=== PATIENT | female | born 1970 | race Caucasian/White ===

== ENCOUNTER 2022-05-11 12:46 | Inpatient (IN) | payer BC ==
[~2022-05-11] VITALS: Ht 167.6 cm; Wt 139.7 kg
[2022-05-11 14:26] LABS: HEMOGLOBIN 13.3 gm/dl (12.3-15.3); RED BLOOD COUNT 4.25 M/UL (4.00-5.10); WHITE BLOOD COUNT 15.9 K/UL (4.5-11.0)
[2022-05-11 14:46] LABS: BUN/CREATININE RATIO 21 (0-10)
[2022-05-12 04:17] LABS: WHITE BLOOD COUNT 12.5 K/UL (4.5-11.0)
[2022-05-12 04:21] LABS: HEMOGLOBIN 11.3 gm/dl (12.3-15.3); RED BLOOD COUNT 3.61 M/UL (4.00-5.10)
[2022-05-12 04:57] LABS: BUN/CREATININE RATIO 18 (0-10)
[2022-05-12] MEDS ORDERED: TRESIBA FL100 UNIT/1 SQ (11:15)
[2022-05-12] MEDS ORDERED: ELIQUIS5 MG PO (11:15)
[2022-05-12] MEDS ORDERED: KERENDIA20 MG PO (11:15)
[2022-05-12] MEDS ORDERED: METFORMIN HCL1000 MG PO (11:15)
[2022-05-12] MEDS ORDERED: OZEMPIC1 MG/0.71 SQ (11:15)
[2022-05-12] MEDS ORDERED: VITAMIN D325 MC6 PO (11:16)
[2022-05-12] MEDS ORDERED: LISINOPRIL5 MG PO (11:16)
[2022-05-12] MEDS ORDERED: VASCEPA1 GM PO (11:16)
[2022-05-12] MEDS ORDERED: VITAMIN D21250 MCG PO (11:16)
[2022-05-12] MEDS ORDERED: MULTIVITAMIN1 EACH PO (11:17)
[2022-05-13 02:28] LABS: RED BLOOD COUNT 3.65 M/UL (4.00-5.10); WHITE BLOOD COUNT 11.2 K/UL (4.5-11.0)
[2022-05-13 03:11] LABS: BUN/CREATININE RATIO 15 (0-10)
--- NOTE | 2022-05-13 18:03 | NUR ---
REPORT CALLED TO KEATON LEBLANC. PT TO GO TO ROOM [id number]
[2022-05-13] MEDS ORDERED: LEVOFLOXACIN750 MG PO ×4 (18:26→19:09)
[2022-05-13] MEDS ORDERED: PHENERGAN 12.12.5 M1 PO (18:26)
[2022-05-13] MEDS ORDERED: IBUPROFEN600 MG PO (19:06)
== END 2022-05-13 19:40 | disposition home or self-care (01) | DRG 872 ==
LOC: ER1 12:46 → PROG CARE 21:29 → CDU 21:29 → PROG CARE 05-12 09:25
PROVIDERS: Internal Medicine; Physician Assistant Medical; ADMIT Internal Medicine
DX: A41.59 Other Gram-negative sepsis (principal); N10 Acute pyelonephritis; Z68.42 Body mass index [BMI] 45.0-49.9, adult; E66.01 Morbid (severe) obesity due to excess calories; Z20.822 Contact with and (suspected) exposure to COVID-19; I10 Essential (primary) hypertension; E83.42 Hypomagnesemia; E11.9 Type 2 diabetes mellitus without complications; Z86.711 Personal history of pulmonary embolism; Z79.01 Long term (current) use of anticoagulants; Z86.718 Personal history of other venous thrombosis and embolism; Z85.528 Personal history of other malignant neoplasm of kidney; Z87.440 Personal history of urinary (tract) infections; Z87.442 Personal history of urinary calculi; Z90.49 Acquired absence of other specified parts of digestive tract; Z98.891 History of uterine scar from previous surgery; Z98.890 Other specified postprocedural states; Z83.3 Family history of diabetes mellitus; Z80.8 Family history of malignant neoplasm of other organs or systems
CPT/HCPCS: 36415; 80048; 80053; 81001; 82962; 83605; 83735; 83880; 85025; 85027; 87040; 87077; 87086; 87186; 93005; 96361; 96374; 96375; 96376; 99285; C9113; J0696; J2405; J3475; Q9967